=== PATIENT | male | born 1995 | race African-American/Black ===

== ENCOUNTER 2016-08-14 01:00 | Emergency (ER) | payer MEDICAID ==
[~2016-08-14] VITALS: Ht 175.3 cm; Wt 68.0 kg
[~2016-08-14 01:00] MED LIST: VENL-179 PO
[2016-08-14 01:45] VITALS: BP 133/80
[2016-08-14] MEDS ORDERED: ACETAMINOPHEN WITH CODEINE 300/30MG TABLET PO ONE (02:45)
== END 2016-08-14 05:41 | disposition home or self-care (01) ==
LOC: ER 01:07
DX: L23.9 Allergic contact dermatitis, unspecified cause (principal); F20.9 Schizophrenia, unspecified; F32.9 Major depressive disorder, single episode, unspecified
CPT/HCPCS: 99283

== ENCOUNTER 2021-07-06 00:03 | Emergency (ER) | payer OTHER ==
[~2021-07-06] VITALS: Ht 177.8 cm; Wt 55.0 kg
[2021-07-06 00:52] LABS: BASOPHILS % 0.9 % (0.0-2.0); EOSINOPHILS % 1.2 % (0.0-5.0); HEMATOCRIT. 37.8 % (42.0-52.0); HEMOGLOBIN. 12.4 g/dL (14.0-18.0); LYMPHOCYTES % 18.7 % (20.0-50.0); MEAN CORPUSCULAR HEMOGLOBIN 26.1 pg (28.0-32.0); MEAN CORPUSCULAR VOLUME 79.7 fL (80.0-94.0); MEAN PLATELET VOLUME 9.3 fl (7.4-10.4); MONOCYTES % 9.8 % (2.0-8.0); NEUTROPHILS % 69.4 % (40.0-76.0); PLATELET 243 x1000/uL (130-400); RED BLOOD CELL COUNT 4.74 mill/uL (4.7-6.1); RED CELL DISTRIBUTION WIDTH 14.2 % (11.6-14.6)
[2021-07-06 01:03] LABS: CHLORIDE 108 mEq/L (98-107)
[2021-07-06 01:07] LABS: ETHANOL BLOOD < 10 mg/dL
[2021-07-06 02:30] VITALS: BP 120/65
== END 2021-07-06 05:26 | disposition home or self-care (01) ==
LOC: EDBD 00:03 → EDUNIT# 00:03 → ER 00:03
DX: F91.8 Other conduct disorders (principal); F99 Mental disorder, not otherwise specified; F15.10 Other stimulant abuse, uncomplicated
CPT/HCPCS: 36415; 80053; 80320; 84443; 85025; 93005; 99284; G0480